=== PATIENT | male | born 1930 | race Caucasian/White ===

== ENCOUNTER 2016-08-24 15:48 | Outpatient (CLI) | payer MEDICARE ==
--- NOTE | 2016-08-24 17:47 | RAD ---
RIGHT SHOULDER THREE VIEWS 08/24/16 Some minor degenerative changes are seen in the shoulder but there is no sign of fracture, recent or remote. The AC joint is not wide The visible adjacent ribs appear intact. IMPRESSION: No acute findings. POS: HOME
--- NOTE | 2016-08-24 18:16 | RAD ---
CHEST TWO VIEWS 08/24/16 Comparison is made with the 03/07/[address] [facility]. Moderate cardiomegaly is present without congestive change. There seems to be some generalized promi nence to the interstitial markings of the lungs which are perhaps a little more so in the right lung base. Nevertheless, these findings seem more chronic than acute. Some changes were present previous ly, just not quite as prominent. Some degree of fibrosis is presumed. Mild elevation of the right he midiaphragm is no different than before. A cardiac pacer is in place as usual. 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 IMPRESSION: 1. Moderate cardiomegaly without congestive change. 2. Generalized prominence of the interstitial markings. Some mild fibrosis is suspected. POS: HOME
== END 2016-08-24 15:49 | disposition home or self-care (01) ==
LOC: BURRAD 15:48
PROVIDERS: ATTEND Family Medicine
DX: M54.6 Pain in thoracic spine (principal); I51.7 Cardiomegaly
CPT/HCPCS: 71020